=== PATIENT | female | born 1950 | race Caucasian/White ===

== ENCOUNTER 2017-07-16 10:44 | Emergency (ER) | payer SELFPAY ==
[~2017-07-16] VITALS: Ht 152.4 cm; Wt 39.0 kg
[2017-07-16 10:48] VITALS: Ht 152.4 cm; Wt 39.0 kg
[2017-07-16] MEDS ORDERED: LIDOCAINE 1% (MDV) 20 ML INJ SC ONE (12:00)
[2017-07-16] MEDS ORDERED: DIPHTH/TET/ACEL PERTUSS (ADULT) 0.5 ML VIAL IM* ONE (12:00)
[2017-07-16] MEDS ORDERED: IBUP-1542 PO (13:21)
[2017-07-16] MEDS ORDERED: SULF1TAB31 PO (13:22)
[2017-07-16] MEDS ORDERED: CEPH-443 PO (13:22)
[2017-07-16] MEDS ORDERED: IBUPROFEN 600 MG TAB PO ONE (13:30)
[2017-07-16 13:34] VITALS: BP 148/73; PULSE 73; RESP 18; TEMP 98.5
--- NOTE | 2017-07-16 13:43 | ERD ---
ER Documentation Chief Complaint Date/Time DATE: 07/16/17 TIME: 13:37 Chief Complaint chin abcess x 1 week (MOIRA HERNÁNDEZ PA-C) HPI This 64-year-old female who presents to the emergency department for concerns of an chin abscess 1 week. Patient states initially she had a small pimple at the affected site however after picking at it the lesion has grown in size. Patient does report some yellow discharge from the affected site. Patient denies any fevers or chills. Denies any insect bites. Denies taking any medication for symptoms. (MOIRA HERNÁNDEZ PA-C) ROS All systems reviewed and are negative except as per history of present illness. (MOIRA HERNÁNDEZ PA-C) Medications Home Meds Active Scripts Cephalexin* (Keflex*) 500 Mg Capsule, 500 MG PO QID for 10 Days, CAP Prov:MOIRA HERNÁNDEZ PA-C 07/16/17 Sulfamethoxazole/Trimethoprim* (Bactrim Ds* Tablet) 1 Each Tablet, 1 TAB PO BID , #20 TAB Prov:MOIRA HERNÁNDEZ PA-C 07/16/17 Ibuprofen* (Ibuprofen*) 600 Mg Tablet, 600 MG PO Q6, #30 TAB Prov:MOIRA HERNÁNDEZ PA-C 07/16/17 PMhx/Soc Medical and Surgical Hx: pt denies Medical Hx History of Surgery: Yes (hysterectomy) Anesthesia Reaction: No Hx Neurological Disorder: No Hx Respiratory Disorders: No Hx Cardiac Disorders: No Hx Psychiatric Problems: No Hx Miscellaneous Medical Probl: No Hx Alcohol Use: No Hx Substance Use: No Hx Tobacco Use: Yes Smoking Status: Current every day smoker (MOIRA HERNÁNDEZ PA-C) Physical Exam Vitals Vital Signs Date Time Temp Pulse Resp B/P Pulse Ox O2 Delivery O2 Flow Rate FiO2 07/16/17 13:34 98.5 73 18 148/73 100 Room Air 07/16/17 10:48 98.8 67 18 160/80 99 (EFRA QUINTANA MD) Physical Exam GENERAL: Well-developed, well-nourished female. Appears in no acute distress. HEAD: Normocephalic, atraumatic. EYES: Pupils are equally reactive bilaterally. EOMs grossly intact. No conjunctival erythema. ENT: Moist mucous membranes. No uvula deviation. No kissing tonsils. Poor dentition. Teeth are non tender to palpation. NECK: Supple. No meningismus. Normal range of motion of the neck. LUNG: Clear to auscultation bilaterally. No rhonchi, wheezing, rales or coarse breath sounds. HEART: Regular rate and rhythm. No murmurs, rubs or gallops. EXTREMITIES: Equal pulses bilaterally. No peripheral clubbing, cyanosis or edema. No unilateral leg swelling. NEUROLOGIC: Alert and oriented. Moving all four extremities without any difficulty. Normal speech. Steady gait. SKIN: Circular abscess noted on the R chin. +Erythema and swelling. Active yellow drainage expressed from abscess site. (MOIRA HERNÁNDEZ PA-C) Results 24 hrs Current Medications Medications (Trade) Dose Ordered Sig/Kellen Route PRN Reason Start Time Stop Time Status Last Admin Dose Admin Diphtheria/ Tetanus/Acell Pertussis (Adacel) 0.5 ml ONCE ONCE IM* 07/16/17 12:00 07/16/17 12:01 DC 07/16/17 11:55 Lidocaine (Xylocaine 1% (Mdv) 20 ml) 20 ml ONCE ONCE SC 07/16/17 12:00 07/16/17 12:01 DC Ibuprofen (Motrin) 600 mg ONCE ONCE PO 07/16/17 13:30 07/16/17 13:31 DC 07/16/17 13:23 (EFRA QUINTANA MD) Procedures/MDM ED COURSE: The patient was stable throughout ED course. I kept the patient and/or family informed of laboratory and diagnostic imaging results throughout the ED course. PROCEDURES: INCISION AND DRAINAGE: The patient was verbally consented prior to procedure. Patient was explained the risks, benefits and alternatives to this procedure. Location: chin Abscess size: 3 cm Anesthesia: local 1% lidocaine, 5 cc Preparation: The area was prepped in a sterile fashion using betadine x3 cleanses. A sterile field was prepared. Technique: A sterile 11 blade scalpel was used to make a 1 cm linear incision into the abscess. Procedure: A midline abscess incision was made using a sterile scalpel in a linear fashion. Purulent material was expressed with direct pressure. Blunt probing was used to break up loculations. Bleeding was minimal. Packing: half iodoform packing was placed into the wound. The patient tolerated the procedure well with no complications. The wound was dressed in sterile gauze. The patient was neurovascularly intact post- procedure. Post-procedural wound care was discussed with the patient. MEDICATIONS GIVEN: Tdap, Ibuprofen Patient tolerated medication well with no adverse reactions. Patient reported improvement in pain. MEDICAL DECISION MAKING: This is a 67-year-old female who presents emergency department for concerns of an abscess to her chin 1 week.. Vital signs were reviewed. Patient was afebrile. Incision and drainage was performed. Purulent discharge was expressed from the abscess site. Patient will be discharged home with a prescription for Keflex and Bactrim. Patient was advised to follow-up in 2 days for wound recheck. Patient also encouraged to follow-up with a dentist on an outpatient basis for her poor dentition. This time, the patient's presentation is most consistent with a chin abscess. Low suspicion for necrotizing fasciitis, sepsis, deep space infection, osteomyelitis. PRESCRIPTIONS: Bactrim Keflex Ibuprofen DISCHARGE: At this time, the patient is stable for discharge and outpatient management. Dentist referral information given. The patient has been advised to return to the ER in 2 days for wound recheck. I have instructed the patient to promptly return to the ER for any new or worsening symptoms including increasing pain, fever, warmth, redness or swelling. The patient and/or family expressed understanding of and agreement with this plan. All questions were answered. Home care instructions were provided. (MOIRA HERNÁNDEZ MD note-agree with detailed history and physical and treatment of mid-level provider Subjective-patient presents with increasing redness, swelling of the chin for last week. Objective-afebrile. Fluctuant redness on the chin Assessment-abscess of the chin without evidence of sepsis or necrotizing fasciitis Abscess incised and drained by mid-level provider per procedure note Plan-antibiotics, return precautions, and wound care and follow-up as advised. (EFRA QUINTANA MD) Departure Diagnosis: Primary Impression: Abscess Condition: Stable Patient Instructions: Abscess, Incision And Drainage Referrals: COMMUNITY CLINICS YOU HAVE RECEIVED A MEDICAL SCREENING EXAM AND THE RESULTS INDICATE THAT YOU DO NOT HAVE A CONDITION THAT REQUIRES URGENT TREATMENT IN THE EMERGENCY DEPARTMENT. FURTHER EVALUATION AND TREATMENT OF YOUR CONDITION CAN WAIT UNTIL YOU ARE SEEN IN YOUR DOCTORS OFFICE WITHIN THE NEXT 1-2 DAYS. IT IS YOUR RESPONSIBILITY TO MAKE AN APPOINTMENT FOR FOLOW-UP CARE. IF YOU HAVE A PRIMARY DOCTOR --you should call your primary doctor and schedule an appointment IF YOU DO NOT HAVE A PRIMARY DOCTOR YOU CAN CALL OUR PHYSICIAN REFERRAL HOTLINE AT IF YOU CAN NOT AFFORD TO SEE A PHYSICIAN YOU CAN CHOSE FROM THE FOLLOWING [facility] [address] [facility] [address] [facility] [address] [facility] [address] [facility] [address] [facility]. [facility] [address] [facility]. [facility] YOU HAVE RECEIVED A MEDICAL SCREENING EXAM AND THE RESULTS INDICATE THAT YOU DO NOT HAVE A CONDITION THAT REQUIRES URGENT TREATMENT IN THE EMERGENCY DEPARTMENT. FURTHER EVALUATION AND TREATMENT OF YOUR CONDITION CAN WAIT UNTIL YOU ARE SEEN IN YOUR DOCTORS OFFICE WITHIN THE NEXT 1-2 DAYS. IT IS YOUR RESPONSIBILITY TO MAKE AN APPOINTMENT FOR FOLOW-UP CARE. IF YOU HAVE A PRIMARY DOCTOR --you should call your primary doctor and schedule and appointment IF YOU DO NOT HAVE A PRIMARY DOCTOR YOU CAN CALL OUR PHYSICIAN REFERRAL HOTLINE AT . IF YOU CAN NOT AFFORD TO SEE A PHYSICIAN YOU CAN CHOSE FROM THE FOLLOWING [facility]: [facility] [address] [place] [address] [facility] [address] [place] [address] [facility] + [facility] [address] [place] [address] [facility] DENTIST ([facility] [employer] walk in clinic) Additional Instructions: Return in two days for wound recheck. Take antibiotics as prescribed. Return sooner for any new or worsening symptoms. Call your primary care doctor TOMORROW for an appointment during the next 1-2 days.See the doctor sooner or return here if your condition worsens before your appointment time. MOIRA HERNÁNDEZ PA-C Jul 16, 2017 13:43 EFRA QUINTANA MD Jul 16, 2017 14:28 EFRA QUINTANA MD Jul 16, 2017 14:28
== END 2017-07-16 13:35 | disposition home or self-care (01) ==
LOC: FTE 10:44
DX: L02.01 Cutaneous abscess of face (principal); F17.210 Nicotine dependence, cigarettes, uncomplicated
CPT/HCPCS: 90471; 90715

== ENCOUNTER 2017-07-18 10:00 | Emergency (ER) | END 2017-07-18 11:52 | disposition home or self-care (01) | DX: Z48.01 Encounter for change or removal of surgical wound dressing (principal); F17.210 Nicotine dependence, cigarettes, uncomplicated ==